=== PATIENT | female | born 1945 | race Caucasian/White ===

== ENCOUNTER 2021-07-12 10:01 | Emergency (ER) | payer MEDICARE ==
[2021-07-12 10:41] LABS: RED BLOOD COUNT 4.98 M/UL (4.00-5.10); WHITE BLOOD COUNT 6.3 K/UL (4.5-11.0)
[2021-07-12 11:05] LABS: BUN/CREATININE RATIO 27 (0-10)
== END 2021-07-12 11:55 | disposition short-term general hospital (02) ==
LOC: ER1 10:01
PROVIDERS: Emergency Medicine
DX: R53.1 Weakness (principal); R26.2 Difficulty in walking, not elsewhere classified; R47.9 Unspecified speech disturbances; Z20.822 Contact with and (suspected) exposure to COVID-19; E78.5 Hyperlipidemia, unspecified; I10 Essential (primary) hypertension; E87.6 Hypokalemia; Z79.01 Long term (current) use of anticoagulants
CPT/HCPCS: 70450; 71045; 80053; 82550; 82553; 82962; 83874; 84484; 85025; 85610; 85730; 93005; 99285; J2997; U0002